=== PATIENT | female | born 1970 | race Caucasian/White ===

== ENCOUNTER 2020-11-27 09:05 | Emergency (ER) | payer BC, SELFPAY ==
--- NOTE | 2020-11-27 09:09 | ECG_ITS ---
[facility] Test Date: 2020-11-27 Pat Name: Jeramie Block Department: Room: Gender: Female Director Gift: : 1970 Requested By: Joshua Zepeda Order Number: [id number] Reading MD: GUANACO GARZA Measurements Intervals [place] Rate: 67 P: 37 W[place]: 149 QRS: 4 QRSD: 83 T: 46 QT: 404 QTc: 427 Interpretive Statements SINUS RHYTHM WITH SINUS ARRHYTHMIA LOW QRS VOLTAGE IN PRECORDIAL LEADS [QRS DEFLECTION < 1.0 mV IN CHEST LEADS] No previous ECG available for comparison Electronically Signed On 11-27-2020 19:27:47 CDT by GUANACO GARZA [id number]
[2020-11-27 09:13] VITALS: BP 119/70; PULSE 84; RESP 17; TEMP 36.2; O2SAT 97; BMI 28.3
--- NOTE | 2020-11-27 09:23 | W.ED.SYNCOPE ---
HPI - Syncope General: Chief Complaint: Syncope Stated Complaint: Passed out at workplace Time Seen by Provider: 11/27/20 09:06 History of Present Illness: HPI narrative: 50-year-old female presents to the emergency room with a syncopal episode while sitting at her her job. She is talking some coworkers got lightheaded and dizzy and essentially passed out did not have any chest pain or discomfort. She did recently have bariatric surgery and has lost up to 105 pounds. Only medication is citalopram she not take any other medications or changed any doses recently. No fever sweats chills cough nausea vomiting or diarrhea. MD complaint: loss of consciousness and collapsed Onset (ago): minute(s) Prodromal symptoms: lightheaded Witnessed: No Injuries sustained associated with event: none Associated symptoms: Deny abdominal pain, chest pain, fever(s), headache(s), lightheadedness, nausea, short of breath, vertigo or weakness History: other (Recent significant weight loss) Treatments prior to arrival: none Review of Systems Const: Denies: fever(s) ENMT: Denies: throat pain, ear or mastoid pain, nasal discharge or nasal congestion Card: Denies: chest pain or lightheadedness Resp: Denies: dyspnea, productive cough or non-productive cough GI: Denies: abdominal pain or nausea Neuro: Denies: headache(s) or vertigo Physical Exam Const: COMMON NORMALS: no acute distress GENERAL APPEARANCE: cooperative and comfortable ORIENTATION/CONSCIOUSNESS: Yes awake, Yes oriented to person, Yes oriented to place and Yes oriented to time HENMT: COMMON NORMALS: normocephalic, atraumatic and hearing grossly normal bilaterally HEAD & SCALP: normocephalic and atraumatic Neck/C-Spine: COMMON NORMALS: full ROM, no lymphadenopathy, supple and no JVD Resp: COMMON NORMALS: normal respiratory effort, No retractions, No use of accessory muscles and clear to auscultation bilaterally AUSCULTATION: clear to auscultation bilaterally Cardio: COMMON NORMALS: no JVD, regular rate, regular rhythm and No murmurs present (Cardio) RATE: regular rate RHYTHM: regular rhythm GI: COMMON NORMALS: Soft to palpation and No hepatosplenomegaly present AUSCULTATION: Yes normoactive bowel sounds PALPATION: Yes Soft to palpation, No Tenderness to palpation present (GI), No Guarding due to palpation present (GI) and Yes No hepatosplenomegaly present Extremity: COMMON NORMALS: normal to inspection, capillary refill normal, no clubbing, cyanosis or edema, no calf tenderness and no pedal edema Neuro: SENSORIUM/ORIENTATION: Yes oriented to person, Yes oriented to place and Yes oriented to time Skin: COMMON NORMALS: no rashes or lesions noted GENERAL SKIN EXAM: no rashes or lesions noted Course Vital Signs: Vital signs: Vital Signs Temperature 97.2 F L 11/27/20 09:13 Pulse Rate 59 L 11/27/20 12:16 Respiratory Rate 18 11/27/20 12:16 Blood Pressure 110/74 11/27/20 12:16 Pulse Oximetry 98 11/27/20 12:16 MDM - Syncope MDM Narrative: Medical decision making narrative: Patient was mildly hypoglycemic which resolved the triggering is on the gait. Fluids improved she is feeling much better labs and imaging reviewed as on the chart we will discharge her home. Encourage adequate and fluid intake follow-up with her primary care doctor suspect she simply had a syncopal episode. Lab Data: Labs: Lab Results 11/27/20 11/27/20 11/27/20 Range/Units 09:34 09:34 09:34 WBC 5.6 (4.0-10.0) 10^3/ uL RBC 4.47 (4.1-5.3) 10^6/u L Hgb 13.3 (11.5-15.3) g/dL Hct 41.1 (37.0-47.0) % MCV 91.9 (81-99) fl MCH 29.8 (28.0-34.0) pg MCHC 32.4 (30.0-36.0) g/dL RDW 11.9 L (12.1-15.1) % Plt Count 191 (130-400) 10^3/c mm MPV 10.9 H (7.4-10.4) fL Neut % (Auto) 70.4 % Lymph % (Auto) 18.7 % [place] % (Auto) 8.4 % Eos % (Auto) 1.4 % Baso % (Auto) 0.7 % Neut # (Auto) 3.92 (1.8-7.7) 10^3/u L Lymph # (Auto) 1.0 (0.8-4.8) 10^3/u L [place] # (Auto) 0.5 (0.2-0.9) 10^3/u L Eos # (Auto) 0.1 (0.0-0.8) 10^3/u L Baso # (Auto) 0.0 (0.0-0.1) 10^3/u L Nucleated RBC % (a uto) 0 % Nucleated RBCs # 0.0 /100WBC Sodium 140 (136-145) mmol/L Potassium 3.6 (3.5-5.1) mmol/L Chloride 104 (98-107) mmol/L Carbon Dioxide 27 (22-29) mmol/L Anion Gap 12.6 (5-19) BUN 15 (6-20) mg/dL Creatinine 0.6 (0.5-0.9) mg/dL GFR Calculation 105.8 (90-130) mL/min Glucose 54 L (65-115) mg/dL POC Glucose (70-110) mg/dL Calculated Osmolal ity 288 (285-295) mOsm/k g Calcium 8.7 (8.5-10.5) mg/dL Total Bilirubin 0.4 (0.15-1.2) mg/dL AST 23 (0-32) U/L ALT 20 (0-33) U/L Alkaline Phosphata se 96 (35-105) IU/L Troponin T Baselin e 12 H (0-10) ng/L Total Protein 6.4 L (6.6-8.7) g/dL Albumin 3.8 (3.5-5.2) g/dL Globulin 2.6 (1.3-4.6) g/dL 11/27/20 Range/Units 11:52 WBC (4.0-10.0) 10^3/ uL RBC (4.1-5.3) 10^6/u L Hgb (11.5-15.3) g/dL Hct (37.0-47.0) % MCV (81-99) fl MCH (28.0-34.0) pg MCHC (30.0-36.0) g/dL RDW (12.1-15.1) % Plt Count (130-400) 10^3/c mm MPV (7.4-10.4) fL Neut % (Auto) % Lymph % (Auto) % [place] % (Auto) % Eos % (Auto) % Baso % (Auto) % Neut # (Auto) (1.8-7.7) 10^3/u L Lymph # (Auto) (0.8-4.8) 10^3/u L [place] # (Auto) (0.2-0.9) 10^3/u L Eos # (Auto) (0.0-0.8) 10^3/u L Baso # (Auto) (0.0-0.1) 10^3/u L Nucleated RBC % (a uto) % Nucleated RBCs # /100WBC Sodium (136-145) mmol/L Potassium (3.5-5.1) mmol/L Chloride (98-107) mmol/L Carbon Dioxide (22-29) mmol/L Anion Gap (5-19) BUN (6-20) mg/dL Creatinine (0.5-0.9) mg/dL GFR Calculation (90-130) mL/min Glucose (65-115) mg/dL POC Glucose 97 (70-110) mg/dL Calculated Osmolal ity (285-295) mOsm/k g Calcium (8.5-10.5) mg/dL Total Bilirubin (0.15-1.2) mg/dL AST (0-32) U/L ALT (0-33) U/L Alkaline Phosphata se (35-105) IU/L Troponin T Baselin e (0-10) ng/L Total Protein (6.6-8.7) g/dL Albumin (3.5-5.2) g/dL Globulin (1.3-4.6) g/dL Discharge Plan Discharge Patient Disposition: Home Clinical Impression: Hypoglycemia, Syncope Condition: Stable Prescriptions: No Action citalopram [Celexa] 20 mg tablet 30 mg PO DAILY 90 Days Qty: 135 RF: 3 multivitamin Tablet 1 tab PO DAILY RF: 0 Calcium 600 600 mg calcium (1,500 mg) Tablet 600 mg PO DAILY RF: 0 Vitamin B-12 1 tab PO Q7H RF: 0 Discharge Orders: Discharge ED (Routine); Ordered 11/27/20 Ordered By: Joshua Aquino Referrals: Batterton,Tamika, ORAL SURGERY ASSISTANT [Primary Care Provider] - Discharge Diet: Usual diet Discharge Activity: Increase activity as tolerated Patient Instructions: Opioid Safety Coding Level of Care Code ED Rn Cvor for Chg Fwd Exam Comprehensive
[2020-11-27 09:42] LABS: Basophils % 0.7 %; Eosinophils # 0.1 10^3/uL (0.0-0.8); Eosinophils % 1.4 %; Hematocrit 41.1 % (37.0-47.0); Hemoglobin 13.3 g/dL (11.5-15.3); Lymphocytes % 18.7 %; Mean Corpuscular HGB Conc 32.4 g/dL (30.0-36.0); Mean Corpuscular Hemoglobin 29.8 pg (28.0-34.0); Mean Corpuscular Volume 91.9 fl (81-99); Mean Platelet Volume 10.9 fL (7.4-10.4); Monocytes # 0.5 10^3/uL (0.2-0.9); Monocytes % 8.4 %; Neutrophils # 3.92 10^3/uL (1.8-7.7); Neutrophils % 70.4 %; Nucleated Red Blood Cells % 0 %; Platelet Count 191 10^3/cmm (130-400); Red Blood Count 4.47 10^6/uL (4.1-5.3); Red Cell Distribution Width 11.9 % (12.1-15.1); White Blood Count 5.6 10^3/uL (4.0-10.0)
[2020-11-27] MEDS: sodium chloride 0.9% 1,000 ML 999 ML IV ×2 (09:45→11:28)
--- NOTE | 2020-11-27 09:49 | PC.NURSE ---
Pt placed on monitoring engineer per ERPs order.
[2020-11-27 09:50] VITALS: BP 105/66; BP 91/60; BP 95/67; PULSE 58; PULSE 69; PULSE 70
[2020-11-27 10:11] LABS: Alanine Aminotransferase 20 U/L (0-33); Albumin Level 3.8 g/dL (3.5-5.2); Alkaline Phosphatase 96 IU/L (35-105); Anion Gap 12.6 (5-19); Aspartate Amino Transferase 23 U/L (0-32); Blood Urea Nitrogen 15 mg/dL (6-20); Calcium 8.7 mg/dL (8.5-10.5); Carbon Dioxide 27 mmol/L (22-29); Chloride 104 mmol/L (98-107); Creatinine Clr Calc Pharmacy 107.0823; Globulin 2.6 g/dL (1.3-4.6); Glomerular Filtration Rate 105.8 mL/min (90-130); Glucose 54 mg/dL (65-115); Osmolality Calculated 288 mOsm/kg (285-295); Potassium 3.6 mmol/L (3.5-5.1); Sodium 140 mmol/L (136-145); Total Bilirubin 0.4 mg/dL (0.15-1.2); Total Protein 6.4 g/dL (6.6-8.7)
[2020-11-27 10:35] VITALS: BP 105/66; PULSE 49; RESP 18; O2SAT 98
[2020-11-27 10:54] LABS: Troponin(5th) Baseline 12 ng/L (0-10)
[2020-11-27 11:55] LABS: Glucose Point of Care 97 mg/dL (70-110)
[2020-11-27 12:16] VITALS: BP 110/74; PULSE 59; RESP 18; O2SAT 98
--- NOTE | 2020-11-27 16:35 | ECG_ITS ---
[facility] Test Date: 2020-11-27 Pat Name: Jeramie Block Department: Room: Gender: Female Card Grinder: : 1970 Requested By: Joshua Zepeda Order Number: [id number] Tomasz MD: GUANACO GARZA Measurements Intervals [place] Rate: 49 P: 45 DC: 174 QRS: 5 QRSD: 82 T: 33 QT: 456 QTc: 415 Interpretive Statements SINUS BRADYCARDIA WITH SINUS ARRHYTHMIA LOW QRS VOLTAGE IN PRECORDIAL LEADS [QRS DEFLECTION < 1.0 mV IN CHEST LEADS] Compared to ECG 11/27/2020 09:25:57 Sinus rhythm no longer present Electronically Signed On 11-27-2020 19:29:22 CDT by GUANACO GARZA [id number]
== END 2020-11-27 12:15 | disposition home or self-care (01) ==
PROVIDERS: Emergency Provider Family Medicine; PCP Nurse Practitioner Family
DX: R55 Syncope and collapse (principal); E16.2 Hypoglycemia, unspecified
CPT/HCPCS: 36416; 80053; 82962; 84484; 85025; 93005; 96360; 96361; 99284; J7030

== ENCOUNTER → 2024-05-09 11:09 | Outpatient (BNVA) | payer OTHER, SELFPAY | PROVIDERS: PCP Family Medicine; Visit Provider Nurse Practitioner Women's Health | DX: Z12.4 Encounter for screening for malignant neoplasm of cervix (principal); Z12.39 Encounter for other screening for malignant neoplasm of breast; N95.1 Menopausal and female climacteric states | CPT/HCPCS: 87624 ==

== ENCOUNTER → 2024-05-12 08:32 | Outpatient (BNVA) | payer OTHER, SELFPAY | PROVIDERS: PCP Family Medicine; Visit Provider Family Medicine | DX: Z00.00 Encounter for general adult medical examination without abnormal findings (principal); Z98.84 Bariatric surgery status | CPT/HCPCS: 80053; 80061; 82306; 82607; 83540; 84443; 85025 ==

== ENCOUNTER 2024-05-17 09:03 | Outpatient (CLI) | payer OTHER, SELFPAY ==
--- NOTE | 2024-05-17 09:20 | MM_ITS ---
WS: [id number] BILATERAL SCREENING DIGITAL TOMOSYNTHESIS MAMMOGRAM WITH CAD HISTORY: Z12.39 - Encounter for other screening for malignant neop... COMPARISON: 04/17/2015, 04/10/2015 Bilateral CC and MLO views with tomosynthesis and synthetic mammography submitted. Computer aided detection analyzed. Breast composition: The breasts are almost entirely fatty. No suspicious masses, microcalcifications or architectural distortion. Intramammary lymph nodes upper outer quadrant of each breast. MM/MM scr BI tomosynthesis [id number] IMPRESSION: BI-RADS: 2 - Benign. FOLLOW UP: 1 Year Follow-up
== END 2024-05-17 09:04 | disposition home or self-care (01) ==
PROVIDERS: PCP Family Medicine; Visit Provider Nurse Practitioner Women's Health
DX: Z12.31 Encounter for screening mammogram for malignant neoplasm of breast (principal); R92.313 Mammographic fatty tissue density, bilateral breasts; R59.0 Localized enlarged lymph nodes
CPT/HCPCS: 77063; 77067

== ENCOUNTER 2024-06-08 06:38 | Day surgery (SDC) | payer OTHER, SELFPAY ==
[2024-06-08 06:52] VITALS: BP 138/78; PULSE 68; RESP 17; O2SAT 96; BMI 35.4
--- NOTE | 2024-06-08 06:56 | ANES.PREANE2 ---
Pre-Anesthetic Assessment Height/Weight: Height 1.6 m Preop Diagnosis: screening Operation Date: 06/08/24 07:40 Proposed Procedures p Colonoscopy 15947 G0105 Z12.11 Z80.0(Not Applicable) - Desmond Canchola MD Familial anesthetic complications: none Was Beta Suzanne taken within 24 hours: N/A Was Clonidine taken within 24 hours: N/A Social No alcohol and No tobacco Exam alert, oriented x 3, clear to auscultation bilaterally and regular rate & rhythm Airway Submandibular: within normal limits Cervical ROM: within normal limits Mallampati: Class II Dentition: full History/ROS No significant history except as noted and No significant complaints Pulmonary None reported CV/HEM None reported None reported Hepatic None reported GI Gastroesophageal Reflux Disease Metabolic None reported Musc/skel None reported Neuropsych Anxiety Anesthetic Plan ASA status: 2 Anesthesia: MAC Risk of > 500 ml blood loss (7ml/kg in children): No Medications/Allergies Home Medications ?Medication ?Instructions ?Recorded ?Confirmed ?Last Taken ?Type cetirizine 10 mg capsule (Zyrtec) 10 mg PO DAILY PRN Allergy Symptoms 05/09/24 06/08/24 06/07/24 History estradiol 0.5 mg tablet 0.5 mg PO DAILY #90 tabs 05/09/24 06/08/24 06/07/24 Rx progesterone micronized 100 mg 100 mg PO BEDTIME #90 caps 05/09/24 06/08/24 06/07/24 Rx capsule cholecalciferol (vitamin D3) 125 125 mcg PO DAILY #90 caps 05/12/24 06/08/24 06/07/24 Rx mcg (5,000 unit) capsule citalopram 20 mg tablet 20 mg PO BID #180 tabs 05/12/24 06/08/24 06/07/24 Rx omeprazole 10 mg capsule,delayed 10 mg PO DAILY 06/05/24 06/08/24 06/07/24 History release Allergies Allergy/AdvReac Type Severity Reaction Status Date / Time Penicillins Allergy Unknown Verified 06/08/24 06:49 prochlorperazine (From Allergy Unknown Verified 06/08/24 06:49 Compazine) [facility] Anesthesia Medical History Vitamin D deficiency Anxiety Menopausal syndrome on hormone replacement therapy Screening for colorectal cancer Family history of colon cancer in father Surgical History (Updated 05/17/24 @ 10:[address]) Bariatric surgery status History of appendectomy Hx laparoscopic cholecystectomy History of repair of rotator cuff right Hx of tonsillectomy S/P gastric sleeve procedure Family History Father Colon cancer Hypertension Diabetes High cholesterol Grandfather Colon cancer Denies family history of Ovarian cancer Bladder cancer Heart disease Breast cancer Uterine cancer Thyroid disease Stroke Social History Smoking and tobacco/nicotine status: never used tobacco/nicotine Alcohol intake: current Alcohol intake frequency: holidays/special occasions only Alcohol type: wine and hard liquor Substance/Drug Use: never Household members: spouse Marital status: Number of children: 2 Highest education level completed: Associate Degree: Academic Program Current occupational status: employed 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
[2024-06-08] MEDS: sodium chloride 0.9% 1,000 ML 30 ML IV (06:58)
--- NOTE | 2024-06-08 07:02 | W.PM.OPSUD ---
Surgery/Procedure H&P Update DATE OF PROCEDURE: June 08, 2024 DATE H&P PERFORMED: 05/17/24 H&P UPDATE INFORMATION: I have reviewed H&P completed within last 30 days, I have examined patient prior to procedure, No changes to prior documentation, Changes to prior documentation as noted here and Risks and benefits of the procedure reviewed PREOP DIAGNOSIS: screening PLANNED PROCEDURE: Operation Date: 06/08/24 07:40 Proposed Procedures p Colonoscopy 85760 G0105 Z12.11 Z80.0(Not Applicable) - Desmond Canchola MD
[2024-06-08 08:17] VITALS: BP 89/52; PULSE 56; RESP 16; TEMP 36.3; O2SAT 95
[2024-06-08 08:28] VITALS: BP 106/68; PULSE 56; RESP 16; O2SAT 99
--- NOTE | 2024-06-08 08:45 | ANE.PACU2 ---
Inpatient post-anesthesia follow up: Airway intact: Yes Vital signs: Temperature 97.3 F Pulse Rate 56 Respiratory Rate 16 Blood Pressure 106/68 Pulse Oximetry 99 Oxygen Delivery Me thod Room Air Oxygen Flow Rate Fraction of Inspir ed Oxygen Hydration adequate: Yes Nausea and vomiting: No Pain level: 1 Mental status: Baseline
== END 2024-06-08 08:45 | disposition home or self-care (01) ==
PROVIDERS: PCP Family Medicine; Visit Provider Surgery
PROC: 0DJD8ZZ Inspection of Lower Intestinal Tract, Via Natural or Artificial Opening Endoscopic (ICD-10-PCS; CPT 45378; principal; 2024-06-08 07:40)
DX: Z12.11 Encounter for screening for malignant neoplasm of colon (principal); D12.3 Benign neoplasm of transverse colon; K62.1 Rectal polyp; K57.30 Diverticulosis of large intestine without perforation or abscess without bleeding; K21.9 Gastro-esophageal reflux disease without esophagitis; Z79.899 Other long term (current) drug therapy; Z88.0 Allergy status to penicillin; Z80.0 Family history of malignant neoplasm of digestive organs; Z98.84 Bariatric surgery status; Z90.49 Acquired absence of other specified parts of digestive tract
CPT/HCPCS: 45380; 45385; 88305; J2704; J3490; J7030; J9999

== ENCOUNTER 2024-07-03 09:57 | Outpatient (CLI) | payer OTHER, SELFPAY ==
--- NOTE | 2024-07-03 10:11 | XR_ITS ---
WS: [id number] Exam: XR chest 2V* [id number] Date/Time of Exam: 07/03/2024 10:14 AM Reason For Exam: COUGH Comparison 12/16/2005. Lungs are clear and fully inflated. Normal cardiomediastinal silhouette and regional bony elements. No pleural effusions. Bony structures are intact. Anchoring screw in the RIGHT humeral head. Degenerative change and dextroscoliosis of the T-spine. XR/XR chest 2V* [id number] IMPRESSION: 1. No acute cardiopulmonary finding.
== END 2024-07-03 09:58 | disposition home or self-care (01) ==
PROVIDERS: PCP Family Medicine; Visit Provider Family Medicine
DX: R05.9 Cough, unspecified (principal); Z98.890 Other specified postprocedural states; M47.894 Other spondylosis, thoracic region; M41.84 Other forms of scoliosis, thoracic region
CPT/HCPCS: 71046

== ENCOUNTER → 2024-07-26 09:29 | Outpatient (BNVA) | payer OTHER, SELFPAY | PROVIDERS: PCP Family Medicine; Visit Provider Nurse Practitioner Women's Health | DX: N83.291 Other ovarian cyst, right side (principal) | CPT/HCPCS: 76830 ==

== ENCOUNTER 2024-09-26 09:17 | Outpatient (CLI) | payer OTHER, SELFPAY ==
--- NOTE | 2024-09-26 09:29 | MM_ITS ---
WS: [id number] DIAGNOSTIC RIGHT DIGITAL BREAST TOMOSYNTHESIS MAMMOGRAPHY WITH CAD RIGHT breast ultrasound, limited. HISTORY: MASTODYNIA COMPARISON: 05/17/2024, 04/10/2015 TECHNIQUE: RIGHT craniocaudad, mediolateral oblique, and mediolateral views are submitted with tomosynthesis and SM. Spot compression RIGHT CC and MLO. Computer aided detection utilized. Breast composition: The breasts are almost entirely fatty. No abnormalities are identified in the RIGHT breast. No suspicious masses or calcifications. No skin thickening or nipple retraction. RIGHT breast ultrasound, limited. No abnormality noted in the RIGHT breast. Patient directed sonography to the areas of pain and discomfort. This is predominantly around the nipple in the anterior breast. MM/MM diag RT tomosynthesis [id number] IMPRESSION: BI-RADS: 2 - Benign. FOLLOW UP: 1 Year Follow-up No abnormality noted on the mammogram or ultrasound of the RIGHT breast. Return to annual screening mammography.
--- NOTE | 2024-09-26 10:00 | US_ITS ---
WS: [id number] DIAGNOSTIC RIGHT DIGITAL BREAST TOMOSYNTHESIS MAMMOGRAPHY WITH CAD RIGHT breast ultrasound, limited. HISTORY: MASTODYNIA COMPARISON: 05/17/2024, 04/10/2015 TECHNIQUE: RIGHT craniocaudad, mediolateral oblique, and mediolateral views are submitted with tomosynthesis and SM. Spot compression RIGHT CC and MLO. Computer aided detection utilized. Breast composition: The breasts are almost entirely fatty. No abnormalities are identified in the RIGHT breast. No suspicious masses or calcifications. No skin thickening or nipple retraction. RIGHT breast ultrasound, limited. No abnormality noted in the RIGHT breast. Patient directed sonography to the areas of pain and discomfort. This is predominantly around the nipple in the anterior breast. US/US breast RT limited* [id number] IMPRESSION: BI-RADS: 2 - Benign. FOLLOW UP: 1 Year Follow-up No abnormality noted on the mammogram or ultrasound of the RIGHT breast. Return to annual screening mammography.
== END 2024-09-26 09:18 | disposition home or self-care (01) ==
LOC: RAD 09:19
PROVIDERS: PCP Family Medicine; Visit Provider Family Medicine
DX: N64.4 Mastodynia (principal)
CPT/HCPCS: 76642; 77061; G0279